=== PATIENT | female | born 1990 | race Caucasian/White ===

== ENCOUNTER 2017-02-12 16:39 | Emergency (ER) | payer OTHER, MEDICAID ==
[~2017-02-12] VITALS: Ht 170.2 cm; Wt 91.9 kg
[2017-02-12 16:41] VITALS: Ht 170.2 cm; Wt 91.9 kg
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
[2017-02-12] MEDS ORDERED: PREN1TAB73 PO (17:00)
[2017-02-12 17:51] VITALS: BP 129/68; PULSE 62; RESP 14; TEMP 98.3; O2SAT 99
--- NOTE | 2017-02-12 17:51 | NUR ---
DISCHARGE WRITTEN INSTRUCTIONS REVIEWED AND SENT WITH PT. PT VERBALIZES UNDERSTANDING OF DI, DENIES QUESTIONS. PT AMBULATES OUT OF ER WITH STEADY GAIT ACCOMP BY MOTHER AT THIS TIME.
== END 2017-02-12 17:51 | disposition home or self-care (01) ==
LOC: ED 16:39
DX: O9A.212 Injury, poisoning and certain other consequences of external causes complicating pregnancy, second trimester (principal); R07.81 Pleurodynia; Z3A.14 14 weeks gestation of pregnancy; V49.40XA Driver injured in collision with unspecified motor vehicles in traffic accident, initial encounter; Y93.89 Activity, other specified; Y92.414 Local residential or business street as the place of occurrence of the external cause; Y99.8 Other external cause status

== ENCOUNTER 2017-08-12 05:16 | Inpatient (IN) ==
[2017-08-12] MEDS ORDERED: MAG-AL + SIM ORAL LIQUID 30ml PO PRN (05:49)
[2017-08-12] MEDS ORDERED: LIDOCAINE 1% (10mg/ml) 2mL INJ PF SDV ID PRN (05:49)
[2017-08-12] MEDS ORDERED: CARBOPROST 250 MCG/ML INJECTION IM PRN (05:49)
[2017-08-12] MEDS ORDERED: METHYLERGONOVINE 0.2 MG/ML INJECTION IM PRN (05:49)
[2017-08-12] MEDS ORDERED: CALCIUM CARBONATE Chewable 500mg TABLET PO PRN (05:49)
[2017-08-12] MEDS ORDERED: ACETAMINOPHEN 500 MG TABLET PO PRN (05:49)
[2017-08-12] MEDS: LR 1,000 ML IV PRN ×3 (06:32→10:46)
[2017-08-12] MEDS ORDERED: OXYTOCIN DRIP 30 UNIT/500 ML ML IV PRN (06:45)
[2017-08-12] MEDS ORDERED: D5LR 1,000 ML IV PRN (06:45)
[2017-08-12] MEDS ORDERED: NALOXONE 0.4 MG/ML INJECTION IVP PRN (08:54)
[2017-08-12] MEDS ORDERED: ONDANSETRON 4 MG/2 ML INJECTION IVP PRN (08:54)
[2017-08-12] MEDS ORDERED: DiphenhydrAMINE 50 MG/ML INJECTION IVP PRN (08:54)
[2017-08-12] MEDS ORDERED: ROPIVACAINE 1% 10MG/ML INJ 200 MG, SUFentanil 50 MCG in NS 100 ML EPI PRN (08:54)
--- NOTE | 2017-08-12 08:54 | Anesthesia Preoperative Report ---
Anesthesia Epidural/Spinal Rec - Date and Time Date: 08/12/17 Preoperative Diagnosis: Procedure: Labor Epidural Plan: Epidural - Vital Signs Vital Signs: Temperature 98.4 F 08/12/17 06:35 Pulse Rate 68 08/12/17 06:35 Respiratory Rate 18 08/12/17 06:35 Blood Pressure 116/65 08/12/17 06:35 Pulse Oximetry 98 08/12/17 06:35 /Para: P:3 - Medictaions & Allergies Inpatient Medications: Current Medications Acetaminophen (Tylenol) 500 - 1,000 mg PO Q4H PRN PRN Reason: Pain Al Hydroxide/Mg Hydroxide (Maalox Plus) 30 ml PO Q3H PRN PRN Reason: Indigestion Calcium Carbonate (Tums) 500 - 1,000 mg PO Q2H PRN PRN Reason: Indigestion Carboprost Tromethamine (Hemabate) 250 mcg IM O PRN PRN Reason: .Downtime Dextrose/Lactated Ringer's (Dextrose 5%-Lactated Ringers) 1,000 mls @ 125 mls/ hr IV .Q8H PRN PRN Reason: Labor Last Admin: 08/12/17 06:31 Dose: 125 mls/hr Lactated Ringer's (Lactated Ringers) 1,000 mls @ 999 mls/hr IV .Q1H1M PRN Last Admin: 08/12/17 06:32 Dose: 999 mls/hr Oxytocin (Pitocin Drip) 30 unit in 500 mls @ 2 mls/hr IV .Q24H PRN; Protocol PRN Reason: Induction/Augmentation Last Admin: 08/12/17 06:31 Dose: 2 mls/hr Lidocaine HCl (Xylocaine-Mpf 1% Vial) 0.2 mg ID O PRN PRN Reason: IV Start Methylergonovine Maleate (Methergine) 0.2 mg IM O PRN Misoprostol (Cytotec) 800 mcg ME ONCE PRN Allergies/Adverse Reactions: Allergies Allergy/AdvReac Type Severity Reaction Status Date / Time No Known Allergies Allergy Verified 08/12/17 06:28 - Home Medications Home Medications: Home Medications Medication Instructions Recorded Confirmed Type Pnv95/Ferrous Fumarate/FA 1 tab PO DAILY #0 02/12/17 08/12/17 History [ Tablet] Iron Polysaccharide Complex 150 mg PO DAILY 07/08/17 08/12/17 History [Niferex] - Surgical History Anesthesia Reactions: None Hx Family Anesthesia Reaction: No History of Motion Sickness: No - Social History Smoking Status: Never smoker Second Hand Exposure: No Substance Use Type: does not use Alcohol Intake Frequency: does not drink Hx Chewing Tobacco Use: No - Pertinent Findings Lab Data: CBC and BMP 08/12/17 06:18 EKG Rhythm: Normal Sinus Rhythm - Physical Exam Respiratory Exam: lungs clear Cardiovascular Exam: regular rate and rhythm, no murmur - Airway Assessment Mallampati Score: II TMD: 3 Fingerbreadths Neck Extension: good Overall Assessment: no airway concerns - ASA ASA Score: 2 - Discussion Discussion: Discussed risks/options/alternatives of anesthesia and questions answered. Patient consents. Nursing pain assessment noted. Anesthesia Discussion: spouse Attestation Statement: Prior to the delivery of any anesthetic medication, I examined the patient, developed the plan, obtained the patient's consent and discussed the risk and benefits of the procedure with the patient/guardian.
--- NOTE | 2017-08-12 13:19 | Labor and Delivery Note ---
DATE 08/12/2017 Saima is a 27-year-old 4, para 3 at 39 weeks 3 days gestational age who was brought in for Pitocin induction this morning due to maternal polycystic kidney disease. Her membranes were ruptured artificially returning clear fluids. She received an epidural. She progressed nicely throughout labor. She had variable decelerations on and off throughout labor. When she got to be complete she only pushed with two contractions and had a spontaneous vaginal delivery in the SANDRO position of a viable male , Apgars 8/9, weight 3818 grams, name "Gonsalo". There was a nuchal cord x1 that was reduced. Baby was vigorous at delivery so he was placed on mom's abdomen and the cord clamping was delayed for more than two minutes. The placenta delivered spontaneously. There were no lacerations. Mom and baby tolerated the delivery well. MTDD
[2017-08-12] MEDS ORDERED: OXYTOCIN DRIP 30 UNIT/500 ML ML IV SCH (13:31)
[2017-08-12] MEDS ORDERED: HYDROCORTISONE 2.5% CREAM 30gm RECTALLY PRN (13:31)
[2017-08-12] MEDS ORDERED: DiphenhydrAMINE 25 MG CAPSULE PO PRN (13:31)
[2017-08-12 15:09] VITALS: RESP 16
[2017-08-12 16:43] VITALS: BMI 35.2
--- NOTE | 2017-08-12 19:43 | Anesthesia Postoperative Note ---
- Date and Time Date: 08/12/17 Time: 19:43 - Status Patient Participated in Evaluation: Patient Participated in Person Vital Signs: Temperature 98 F 08/12/17 16:15 Pulse Rate 77 08/12/17 16:15 Respiratory Rate 16 08/12/17 16:15 Blood Pressure 123/65 08/12/17 16:15 Pulse Oximetry 98 08/12/17 06:35 Respiratory Function: Airway Patent Cardiovascular Function: Regular Pulse EKG: Sinus Rhythm Mental Status: Alert and Oriented Pain Intensity: 0 Hydration: Taking PO Fluids Complications During Recover: None Apparent - Follow-Up Instructions Instructions: Per Surgeon
[2017-08-12] MEDS: IBUPROFEN 800 MG TABLET PO PRN (19:57)
[2017-08-12] MEDS: HYDROCODONE/APAP 5mg/325mg TABLET PO PRN (19:58)
[2017-08-13] MEDS: HYDROCODONE/APAP 5mg/325mg TABLET PO PRN (00:10)
[2017-08-13] MEDS: IBUPROFEN 800 MG TABLET PO PRN ×2 (07:44→17:18)
--- NOTE | 2017-08-13 07:54 | OB/GYN Progress Note ---
OB-PP Progress Note - General PPD1 Maternal Group B Strep: Negative Maternal blood type: A+ Maternal Rubella Status: Immune - Subjective Date: 08/13/17 Lochia: Minimal Pain: controlled Voiding: voiding - Objective Vital Signs: Last Vital Signs Temp 97.5 F 08/13/17 07:10 Pulse 67 08/13/17 07:10 Resp 16 08/13/17 07:10 BP 133/81 08/13/17 07:10 Pulse Ox 99 08/13/17 07:10 General: alert and oriented Abdomen: fundus firm, non-tender Extremities: non-tender - Assessment Assessment: , Other (Polycystic kidney disease) - Plan Plan: routine care, discharge home, continue PNV
[2017-08-13] MEDS ORDERED: DOCUSATE CALCIUM 240 MG CAPSULE PO SCH (09:00)
[2017-08-13 12:55] VITALS: BP 127/76; PULSE 57; TEMP 97.8; O2SAT 97
== END 2017-08-13 16:35 | disposition home or self-care (01) | DRG 775 ==
LOC: MC 05:16
PROVIDERS: ADMIT Obstetrics & Gynecology; ATTEND Obstetrics & Gynecology